=== PATIENT | female | born 1985 ===

== ENCOUNTER 2020-08-08 14:34 | Inpatient (IN) | payer OTHER ==
[2020-08-08] MEDS ORDERED: ePHEDrine SULFATE 50 MG/1 ML INJ IV PRN (15:46)
[2020-08-08] MEDS ORDERED: ONDANSETRON 4 MG/2 ML INJ IV PRN (15:46)
[2020-08-08] MEDS ORDERED: BUTORPHANOL 2 MG/1 ML INJ IV PRN ×2 (15:46)
[2020-08-08] MEDS ORDERED: TERBUTALINE 1 MG/1 ML INJ SUB-Q PRN (15:46)
[2020-08-08] MEDS ORDERED: NalbUPHINE 10 MG/1 ML INJ IV PRN (15:46)
[2020-08-08] MEDS ORDERED: fentaNYL 100 MCG/2 ML INJ IV PRN (15:46)
[2020-08-08] MEDS ORDERED: ACETAMINOPHEN 325 MG TAB PO PRN (15:46)
[2020-08-08] MEDS ORDERED: MINERAL OIL 30 ML ORAL LIQD PO PRN (15:46)
[2020-08-08] MEDS ORDERED: OXYTOCIN 20 UNIT/1000ML DRIP 20 UNITS/1,000 ML BAG IV SCH (16:00)
[2020-08-08 16:22] LABS: Hematocrit 35.4 % (30.3-42.9); Hemoglobin 12.4 gm/dl (10.1-14.3); Mean Corpuscular HGB Conc 35 % (30-34); Mean Corpuscular Volume 96 fl (79-97); Platelet Count 159 K/mm3 (140-440); Red Blood Count 3.69 M/mm3 (3.65-5.03); Red Cell Distribution Width 13.7 % (13.2-15.2)
[2020-08-08] MEDS ORDERED: LIDOCAINE (2%) 20 MG/1 ML VIAL 20 ML MDV INFILTRATI ONE (16:46)
[2020-08-08] MEDS ORDERED: AMPICILLIN/NS 2 GM/100 ML 2 GM/100 ML BAG IV ONE (17:00)
[2020-08-08] MEDS ORDERED: AMPICILLIN/NS 1 GM/50 ML 1 GM/50 ML BAG IV SCH (21:00)
--- NOTE | 2020-08-08 21:06 | Ultrasound Report ---
ULTRASOUND OBSTETRIC LIMITED INDICATION / CLINICAL INFORMATION: VINAY. Clinical Gestational Age (GA): 40 weeks 3 days COMPARISON: None available. FINDINGS: HEART RATE (beats per minute): 129 AMNIOTIC FLUID INDEX (cm) = 4.5 (normal = 7-24 cm) PRESENTATION: Cephalic. ADDITIONAL FINDINGS: None. IMPRESSION: 1. Decreased amniotic fluid index of 4.5 cm. Additional findings as above. Signer Name: Jcarlos Tejeda MD Signed: 08/08/2020 9:02 PM Workstation Name: [email or web address]
--- NOTE | 2020-08-08 21:18 | Ultrasound Report ---
LIMITED OBSTETRIC ULTRASOUND WITH BIOPHYSICAL PROFILE HISTORY: Query well-being. COMPARISON: Limited obstetric ultrasound 08/08/2020 TECHNIQUE: Obstetric sonogram performed for biophysical profile assessment. FINDINGS: Gestation: Monochorionic monoamniotic single intrauterine Presentation: Currentlycephalic Amniotic Fluid Index/Deepest Vertical Pocket: 4.5 cm (as seen on accompanying examination) ANATOMY: Detailed anatomic survey was not requested. heart rate is 129 beats per minute. BIOPHYSICAL PROFILE: Movement: 2 Tone: 2 Breathin Amniotic Fluid: 2 Total: 8 out of 8 IMPRESSION Biophysical Profile 06/23. Signer Name: Jcarlos Tejeda MD Signed: 08/08/2020 9:14 PM Workstation Name: [id number]
--- NOTE | 2020-08-08 21:33 | History and Physical Report ---
History of Present Illness Date of examination: 08/08/20 Date of admission: 08/08/20 14:34 History of present illness: Pt is a 34 yo at 40w 3d with essentially an uncomplicated . She was sent in today after a nonreactive NST in the office today. NST was reactive in L&D and BPP was 8/8 but her VINAY was only 4.5. As a result, will keep pt for IOL for oligo. GBS neg. Past History Past Medical History: no pertinent history Social history: no significant social history - Obstetrical History : 3 Para: 2 Number of Living Children: 2 Medications and Allergies Allergies Allergy/AdvReac Type Severity Reaction Status Date / Time No Known Allergies Allergy Unverified 08/08/20 15:44 Active Meds: Active Medications Acetaminophen (Tylenol) 650 mg PO Q4H PRN PRN Reason: Pain, Mild (1-3) Butorphanol Tartrate (Stadol) 1 mg IV Q2H PRN PRN Reason: Pain, Moderate(4-6) LABOR PAIN Butorphanol Tartrate (Stadol) 2 mg IV Q2H PRN PRN Reason: Pain , Severe (7-10) Ephedrine Sulfate (Ephedrine Sulfate) 10 mg IV Q2M PRN PRN Reason: Hypotension Fentanyl (Sublimaze) 100 mcg IV Q2H PRN PRN Reason: Pain,Severe (7-10) LABOR PAIN Lactated Ringer's (Lactated Ringers) 1,000 mls @ 125 mls/hr IV DIRECT BRAYDEN Oxytocin/Sodium Chloride (Pitocin/Ns 20 Unit/1000ml Drip) 20 units in 1,000 mls @ 125 mls/hr IV DIRECT BRAYDEN Ampicillin Sodium (Ampicillin/Ns 1 Gm/50 Ml) 1 gm in 50 mls @ 100 mls/hr IV Q4H BRAYDEN; Protocol Mineral Oil (Mineral Oil) 30 ml PO QHS PRN PRN Reason: Constipation Nalbuphine HCl (Nalbuphine) 10 mg IV Q2H PRN PRN Reason: Pain, Moderate (4-6) Ondansetron HCl (Zofran) 4 mg IV Q8H PRN PRN Reason: Nausea And Vomiting Terbutaline Sulfate (Brethine) 0.25 mg SUB-Q ONCE PRN PRN Reason: Hyperstimulation/Hypertonicity Review of Systems All systems: negative - Vital Signs Vital signs: Vital Signs Pulse BP 79 117/68 08/08/20 15:27 08/08/20 15:27 Temp Pulse Resp BP Pulse Ox 99.1 F 85 18 117/68 99 08/08/20 19:30 08/08/20 21:27 08/08/20 19:30 08/08/20 19:30 08/08/20 21:27 - Obstetrical FHR: category 1 Cervical Dilatation: 1 Cervical Effacement Percentage: 40 (per RN report) station: hi Results Result Diagrams: 08/08/20 15:45 Abnormal lab results 08/08/20 Range/Units 15:45 MCH 34 H (28-32) pg MCHC 35 H (30-34) % All other labs normal. Assessment and Plan - Patient Problems (1) Oligohydramnios Current Visit: Yes Status: Acute Plan to address problem: In light of her VINAY of 4.5 and being post dates, PT kept for IOL. Cervidil ordered. Expectant management. (2) Post-dates Current Visit: Yes Status: Acute
[2020-08-08] MEDS ORDERED: DINOPROSTONE 10 MG VAG SUPP VG ONE (22:15)
[2020-08-09] MEDS: LACTATED RINGERS 1,000 ML IV SCH ×4 (04:53→14:37)
--- NOTE | 2020-08-09 09:39 | Progress Note ---
Assessment and Plan A: IUP@ 40 wks Oligo P:Continue monitoring D/C cervidil Will AROM once epidural is in place Pain med/Epidural prn Anticipate Subjective - Subjective Date of service: 08/09/20 Principal diagnosis: IUP@term Patient reports: movement normal Objective - Vital Signs Vital Signs: Vital Signs - 12hr 08/08/20 08/08/20 08/08/20 21:37 21:42 21:47 Temperature Pulse Rate 84 83 81 Respiratory Rate Blood Pressure O2 Sat by Pulse 100 100 98 Oximetry 08/08/20 08/08/20 08/08/20 21:52 21:57 22:07 Temperature Pulse Rate 84 91 H 85 Respiratory Rate Blood Pressure O2 Sat by Pulse 100 100 98 Oximetry 08/08/20 08/08/20 08/08/20 22:12 22:27 22:32 Temperature Pulse Rate 94 H 88 80 Respiratory Rate Blood Pressure O2 Sat by Pulse 98 97 99 Oximetry 08/08/20 08/08/20 08/08/20 22:37 22:42 23:16 Temperature Pulse Rate 88 82 71 Respiratory Rate Blood Pressure O2 Sat by Pulse 99 98 96 Oximetry 08/08/20 08/08/20 08/08/20 23:21 23:26 23:31 Temperature Pulse Rate 87 70 75 Respiratory Rate Blood Pressure O2 Sat by Pulse 100 100 100 Oximetry 08/08/20 08/08/20 08/08/20 23:36 23:41 23:42 Temperature Pulse Rate 73 87 79 Respiratory Rate Blood Pressure O2 Sat by Pulse 100 82 L 99 Oximetry 08/08/20 08/08/20 08/08/20 23:47 23:52 23:57 Temperature Pulse Rate 72 72 84 Respiratory Rate Blood Pressure O2 Sat by Pulse 98 98 98 Oximetry 08/09/20 08/09/20 08/09/20 00:02 00:07 00:12 Temperature Pulse Rate 83 85 82 Respiratory Rate Blood Pressure O2 Sat by Pulse 98 98 98 Oximetry 08/09/20 08/09/20 08/09/20 00:17 00:22 00:27 Temperature Pulse Rate 78 82 76 Respiratory Rate Blood Pressure O2 Sat by Pulse 99 99 99 Oximetry 08/09/20 08/09/20 08/09/20 00:32 00:37 00:42 Temperature Pulse Rate 74 72 77 Respiratory Rate Blood Pressure O2 Sat by Pulse 99 99 99 Oximetry 08/09/20 08/09/20 08/09/20 00:47 00:52 00:57 Temperature Pulse Rate 71 72 78 Respiratory Rate Blood Pressure O2 Sat by Pulse 99 100 100 Oximetry 08/09/20 08/09/20 08/09/20 01:02 01:07 01:12 Temperature Pulse Rate 80 79 85 Respiratory Rate Blood Pressure O2 Sat by Pulse 99 98 98 Oximetry 08/09/20 08/09/20 08/09/20 01:17 01:22 01:27 Temperature Pulse Rate 76 79 74 Respiratory Rate Blood Pressure O2 Sat by Pulse 98 98 97 Oximetry 08/09/20 08/09/20 08/09/20 01:32 01:37 01:42 Temperature Pulse Rate 78 78 87 Respiratory Rate Blood Pressure O2 Sat by Pulse 97 98 100 Oximetry 08/09/20 08/09/20 08/09/20 01:47 01:52 01:57 Temperature Pulse Rate 70 92 H 73 Respiratory Rate Blood Pressure O2 Sat by Pulse 98 97 98 Oximetry 08/09/20 08/09/20 08/09/20 02:02 02:07 02:12 Temperature Pulse Rate 72 73 72 Respiratory Rate Blood Pressure O2 Sat by Pulse 98 98 98 Oximetry 08/09/20 08/09/20 08/09/20 02:17 02:22 02:27 Temperature Pulse Rate 92 H 87 79 Respiratory Rate Blood Pressure O2 Sat by Pulse 98 99 97 Oximetry 08/09/20 08/09/20 08/09/20 02:32 03:26 03:31 Temperature Pulse Rate 75 73 74 Respiratory Rate Blood Pressure O2 Sat by Pulse 98 98 98 Oximetry 08/09/20 08/09/20 08/09/20 03:36 03:41 03:46 Temperature Pulse Rate 71 79 72 Respiratory Rate Blood Pressure O2 Sat by Pulse 98 98 98 Oximetry 08/09/20 08/09/20 08/09/20 03:51 03:56 04:01 Temperature Pulse Rate 69 69 70 Respiratory Rate Blood Pressure O2 Sat by Pulse 98 98 98 Oximetry 08/09/20 08/09/20 08/09/20 04:06 04:11 04:16 Temperature Pulse Rate 85 72 70 Respiratory Rate Blood Pressure O2 Sat by Pulse 99 99 99 Oximetry 08/09/20 08/09/20 08/09/20 04:21 04:26 04:31 Temperature Pulse Rate 72 79 72 Respiratory Rate Blood Pressure O2 Sat by Pulse 99 98 98 Oximetry 08/09/20 08/09/20 08/09/20 04:36 04:41 04:46 Temperature Pulse Rate 86 72 83 Respiratory Rate Blood Pressure O2 Sat by Pulse 100 97 98 Oximetry 08/09/20 08/09/20 08/09/20 08:40 08:42 08:45 Temperature 98.6 F Pulse Rate 81 77 Respiratory 18 Rate Blood Pressure 112/63 O2 Sat by Pulse 98 97 Oximetry 08/09/20 08/09/20 08/09/20 08:47 08:52 08:57 Temperature Pulse Rate 89 88 76 Respiratory Rate Blood Pressure O2 Sat by Pulse 99 96 97 Oximetry 08/09/20 08/09/20 08/09/20 09:02 09:07 09:12 Temperature Pulse Rate 77 81 89 Respiratory Rate Blood Pressure O2 Sat by Pulse 96 97 97 Oximetry 08/09/20 08/09/20 08/09/20 09:17 09:22 09:24 Temperature Pulse Rate 98 H 74 Respiratory 18 Rate Blood Pressure O2 Sat by Pulse 98 99 Oximetry 08/09/20 08/09/20 08/09/20 09:27 09:32 09:33 Temperature Pulse Rate 66 75 79 Respiratory Rate Blood Pressure O2 Sat by Pulse 98 98 92 Oximetry - Exam Breasts: normal Abdomen: Present: normal appearance, soft, normal bowel sounds, other (GRAVID) Vulva: both: normal Uterus: Present: normal, firm, other (GRAVID) FHR: auscultation normal, category 1 Uterine Contraction Monitor Mode: External Cervical Dilatation: 4 Cervical Effacement Percentage: 60 station: -2 Uterine Contraction Pattern: Irregular Uterine Tone Measurement Phase: Resting Uterine Contraction Intensity: Mild Extremities: normal - Labs Labs: Abnormal Labs 08/08/20 15:45 MCH 34 H MCHC 35 H Laboratory Results - last 24 hr 08/08/20 08/08/20 08/08/20 15:45 15:45 15:45 WBC 10.1 RBC 3.69 Hgb 12.4 Hct 35.4 MCV 96 MCH 34 H MCHC 35 H RDW 13.7 Plt Count 159 Syphilis IgG Antibody Nonreactive Blood Type O POSITIVE Antibody Screen Negative
[2020-08-09] MEDS ORDERED: DEXMEDETOMIDINE 200 MCG/2 ML VIAL IV ONE (11:15)
[2020-08-09] MEDS ORDERED: NALOXONE 2 MG/2 ML INJ IV PRN (11:29)
--- NOTE | 2020-08-09 11:31 | Anesthesia Consultation ---
Anesthesia Consult and Med Hx Date of service: 08/09/20 - Airway Anesthetic Teeth Evaluation: Good ROM Head & Neck: Adequate Mental/Hyoid Distance: Adequate Mallampati Class: Class II Intubation Access Assessment: Good - Pulmonary Exam CTA: Yes - Cardiac Exam Cardiac Exam: RRR - Pre-Operative Health Status ASA Pre-Surgery Classification: ASA2 Proposed Anesthetic Plan: Epidural - Pulmonary Hx Smoking: No Hx Asthma: No Hx Sleep Apnea: No - Cardiovascular System Hx Hypertension: No - Central Nervous System Hx Seizures: No Hx Psychiatric Problems: No - Gastrointestinal Hx Gastroesophageal Reflux Disease: No - Endocrine Hx Renal Disease: No Hx Hypothyroidism: No Hx Hyperthyroidism: No - Hematic Hx Anemia: No Hx Sickle Cell Disease: No - Other Systems Hx Alcohol Use: No
--- NOTE | 2020-08-09 11:35 | Progress Note ---
Labor Epidural - Labor Epidural Start Time: 11:08 Stop Time: 11:14 Performed by:: LISA PABLO (Nela CASTANEDA) Procedure: Patient is requesting a laboring epidural for laboring pain. Patient IDed, H&P reviewed, all questions and concerns were answered, and consent was signed. Timeout was performed at bedside. Patient in sitting position. Sterile prep and drape was performed. 3ml of 1% lidocaine skin wheal at L[3]- L [4]. 18-gau ge Touhy epidural needle was advanced to loss of resistance with saline technique. Negative CSF negative blood. Epidural catheter advanced to [12] centimeters. [-] Aspiration [-] test dose. Sterile dressing applied. Patient tolerated procedure.
[2020-08-09] MEDS ORDERED: fentaNYL-BUPIV 2 MCG/ML-0.125% 200 MCG/100 ML BAG EPIDURAL SCH (12:00)
[2020-08-09] MEDS ORDERED: ONDANSETRON 4 MG/2 ML INJ IV PRN ×2 (12:00→19:15)
[2020-08-09] MEDS ORDERED: diphenhydrAMINE 50 MG/ML VIAL IV PRN (12:00)
[2020-08-09] MEDS ORDERED: LACTATED RINGERS 1,000 ML ONE (12:38)
[2020-08-09] MEDS ORDERED: miSOPROStol 200 MCG TAB PR ONE (18:30)
[2020-08-09] MEDS ORDERED: miSOPROStol 200 MCG TAB ONE (18:31)
[2020-08-09] MEDS ORDERED: MAGNESIUM HYDROXIDE (MOM) ORAL LIQD UDC PO PRN (19:15)
[2020-08-09] MEDS ORDERED: PROMETHAZINE 25 MG RECT SUPP PR PRN (19:15)
[2020-08-09] MEDS ORDERED: PROMETHAZINE 25 MG TAB PO PRN (19:15)
[2020-08-09] MEDS ORDERED: WITCH HAZEL/ GLYCERIN PAD TP PRN (19:15)
[2020-08-09] MEDS ORDERED: LANOLIN/ZINC/DIMETHICONE (LANSINOH) 7 GM TP PRN (19:15)
--- NOTE | 2020-08-09 19:23 | Procedure Note ---
OB Delivery Note - Vaginal Delivery presentation: vertex Delivery position: OA Intrapartum events: other(please specify) (oligo) Delivery induction: cervidil Delivery augmentation: rupture of membranes Delivery monitor: external FHT, external uterine Route of delivery: Delivery placenta: spontaneous Delivery cord: 3 umbilical vessels Episiotomy: none Delivery laceration: 1st degree, vaginal side wall, other (right vag sidewall tear) Delivery repair: vicryl Anesthesia: epidural Delivery comments: Called to for delivery. SVE 10/100%/+2 and pt was pushing. of a live viable male infant in OA position. Spontaneous delivery of head and shoulders. Infant was immediately placed on mom's chest for skin to skin bonding x 90 sec then cord was clamped x2 and FOB was allowed to cut the cord. Infant was then given to awaiting NICU nurse for an initial asses. 9/9. Spontaneous delivery of intact placenta with CVX3. FF@ U1 boggy off and on with a constant trickle of blood noted. FF remained firm and hemostasis was maintained with fundal massage, IV Pitocin, and Cytotec 800mcg NM. Exploration of tears revealed a 1st degree right vag wall laceration which was bleeding and repaired with a 2- 0 Vicryl on a CT1. EBL 450cc. Mom and baby stable. FW 7 lbs 13.8oz. - Infant A at 1 minute: 9 at 5 minutes: 9 (FW 7lbs 13.8oz) Gender: Male
[2020-08-09] MEDS: IBUPROFEN 600 MG TAB PO SCH (22:13)
[2020-08-10] MEDS: IBUPROFEN 600 MG TAB PO SCH ×3 (05:54→18:46)
[2020-08-10] MEDS ORDERED: DIPHtheria,PERTUSSIS(ACELL),TETANUS VACCINE/PF 0.5 ML VIAL IM ONE (06:00)
[2020-08-10] MEDS ORDERED: NON-FORMULARY EACH (Prenatal One Daily Tablet 1 TAB) PO SCH (10:00)
[2020-08-10] MEDS: PRENATAL VIT27-FE FUMARATE-FOLIC ACID VIT TAB PO SCH (10:22)
[2020-08-10 10:48] LABS: Hematocrit 32.5 % (30.3-42.9); Hemoglobin 11.2 gm/dl (10.1-14.3)
--- NOTE | 2020-08-10 11:40 | Progress Note ---
Assessment and Plan - Patient Problems (1) Status post normal vaginal delivery Current Visit: Yes Status: Acute Plan to address problem: Continue routine PP orders Anticipate d/c home in AM F/U at office in 6 wks for routine PP visit Subjective - Subjective Date of service: 08/10/20 Principal diagnosis: S/P ; PPD#1 Interval history: See admission H & P, OB delivery summary and PP progress notes Patient reports: appetite normal, voiding normally, pain well controlled, flatus, ambulating normally : doing well, bottle feeding (and ) Objective - Vital Signs Latest vital signs: Vital Signs Temp Pulse Resp BP BP Pulse Ox 08/10/20 07:40 98.1 F 83 18 96/57 97 08/10/20 06:28 18 08/10/20 05:54 18 08/10/20 04:00 98.8 F 74 18 103/79 08/10/20 00:00 98.6 F 66 18 114/78 08/09/20 23:13 18 08/09/20 22:13 18 08/09/20 20:57 98.6 F 18 118/65 08/09/20 19:48 75 113/59 08/09/20 19:33 64 89 08/09/20 19:32 88 0 L 08/09/20 19:23 83 89 08/09/20 19:22 89 100 08/09/20 19:18 88 106/57 08/09/20 19:17 94 H 100 08/09/20 19:12 86 91 08/09/20 19:07 76 100 08/09/20 19:04 88 89 08/09/20 19:03 82 99/61 08/09/20 19:02 83 98 08/09/20 18:57 100 H 100 08/09/20 18:52 86 99 08/09/20 18:51 78 78 L 08/09/20 18:48 74 94/52 08/09/20 18:46 81 100 08/09/20 18:41 73 100 08/09/20 18:36 83 100 08/09/20 18:33 80 97/56 08/09/20 18:31 79 99 08/09/20 18:26 99 H 98 08/09/20 18:21 117 H 88 08/09/20 18:20 74 72 L 09/24/20 18:18 75 105/54 2420 18:16 88 100 20 18:14 70 90 20 18:11 66 100 20 18:06 83 100 20 18:05 83 92/54 20 18:01 82 100 20 17:56 68 100 20 17:51 87 92/54 100 20 17:48 86 88/52 20 17:46 66 100 20 17:41 72 100 20 17:36 75 100 20 17:33 84 98/59 20 17:31 84 100 20 17:26 69 100 20 17:21 70 99 20 17:18 67 102/64 20 17:16 79 99 08/09/20 17:11 87 99 08/09/20 17:06 80 100 08/09/20 17:02 79 101/58 20 17:01 82 100 20 16:59 67 104/58 20 16:56 70 103/57 100 20 16:53 71 102/56 20 16:51 70 100 20 16:50 69 105/56 20 16:47 64 97/56 20 16:46 67 100 20 16:44 68 106/59 20 16:41 69 99/55 100 20 16:38 70 99/56 20 16:36 65 100 20 16:35 67 100/57 08/09/20 16:32 67 99/57 24/20 16:31 63 100 20 16:29 65 101/58 08/09/20 16:26 75 102/57 100 20 16:23 68 102/57 24/20 16:21 69 99 20 16:20 74 94/56 24/20 16:17 66 101/57 24/20 16:16 71 100 20 16:14 61 95/53 09/24/20 16:11 62 97/54 100 09/24/20 16:08 75 94/53 09/24/20 16:06 63 100 09/24/20 16:05 67 99/56 09/24/20 16:02 71 98/57 09/24/20 16:01 68 100 09/24/20 15:59 65 97/57 09/24/20 15:56 67 97/55 100 09/24/20 15:53 66 98/55 09/24/20 15:51 61 100 09/24/20 15:50 60 96/53 09/24/20 15:47 62 91/50 09/24/20 15:46 64 100 09/24/20 15:44 68 94/55 09/24/20 15:42 88 94/53 09/24/20 15:41 80 100 09/24/20 15:38 62 94/52 09/24/20 15:36 61 100 09/24/20 15:35 61 101/56 09/24/20 15:32 62 92/55 /24/20 15:31 65 100 09/24/20 15:29 68 93/54 09/24/20 15:26 68 98/57 99 09/24/20 15:23 62 103/60 09/24/20 15:21 66 100 09/24/20 15:20 61 102/56 09/24/20 15:17 67 100/57 09/24/20 15:16 66 100 09/24/20 15:14 66 91/50 09/24/20 15:11 64 98/53 100 09/24/20 15:08 68 95/51 09/24/20 15:06 62 99 09/24/20 15:05 64 99/54 09/24/20 15:02 65 92/53 09/24/20 15:01 63 100 09/24/20 15:00 64 86/51 09/24/20 14:56 62 102/59 99 09/24/20 14:53 60 97/56 09/24/20 14:51 63 99 09/24/20 14:50 63 94/50 09/24/20 14:47 60 95/54 09/24/20 14:46 63 99 09/24/20 14:44 67 91/53 09/24/20 14:41 65 98/57 100 09/24/20 14:38 62 95/50 20 14:36 72 100 08/09/20 14:35 68 93/53 08/09/20 14:32 69 90/54 08/09/20 14:31 66 99 08/09/20 14:30 61 99/55 08/09/20 14:27 98.1 F 64 83/47 08/09/20 14:26 67 100 08/09/20 14:24 60 100/55 08/09/20 14:21 75 100 08/09/20 14:20 72 84/51 08/09/20 14:19 65 88/49 08/09/20 14:18 94 H 86/47 08/09/20 14:16 76 100 08/09/20 14:14 73 91/55 08/09/20 14:11 63 97/55 100 08/09/20 14:08 63 99/56 08/09/20 14:06 64 99 08/09/20 14:05 63 99/57 08/09/20 14:02 64 104/58 08/09/20 14:01 76 100 08/09/20 13:59 67 93/53 08/09/20 13:56 72 89/51 100 08/09/20 13:53 80 86/50 08/09/20 13:51 68 100 08/09/20 13:50 71 89/52 08/09/20 13:47 84 86/51 08/09/20 13:46 64 100 08/09/20 13:44 82 92/56 08/09/20 13:41 70 100/59 100 08/09/20 13:38 66 107/59 08/09/20 13:36 67 108/55 100 08/09/20 13:33 74 89/50 20 13:31 65 100 08/09/20 13:29 61 103/58 20 13:26 67 100/57 100 20 13:23 76 92/52 20 13:21 63 100 20 13:20 68 100/59 20 13:17 63 108/62 20 13:16 64 99 08/09/20 13:14 60 109/59 09/24/20 13:12 72 104/54 09/24/20 13:11 68 100 24/20 13:08 63 107/61 24/20 13:06 66 100 20 13:05 61 104/59 08/09/20 13:02 67 98/57 20 13:01 75 100 20 13:00 111 H 86/55 24/20 12:57 94 H 157/74 20 12:56 80 99 20 12:53 74 98/57 20 12:51 61 108/61 100 08/09/20 12:48 60 132/71 24/20 12:46 63 100 08/09/20 12:44 82 90/59 2420 12:41 83 84/53 99 20 12:38 79 82/53 24/20 12:36 88 99 20 12:35 79 88/51 24/20 12:32 79 82/50 2420 12:31 64 100 20 12:30 100 H 93/53 20 12:27 102 H 101/56 24/20 12:26 68 99 20 12:24 73 106/57 20 12:21 72 99 20 12:20 95/57 24/20 12:17 67 98/57 24/20 12:16 92 H 99 20 12:14 73 104/62 24/20 12:11 72 99/58 100 20 12:08 80 94/58 24/20 12:06 82 100 20 12:05 75 94/59 24/20 12:02 65 95/57 24/20 12:01 71 99 24/20 11:59 64 100/60 24/20 11:57 78 97/60 24/20 11:56 69 100 24/20 11:53 77 101/62 /24/20 11:51 78 100 /24/20 11:50 73 101/63 24/20 11:47 67 102/61 24/20 11:46 75 98 08/09/20 11:44 67 100/62 08/09/20 11:41 63 97/60 98 08/09/20 11:38 75 95/56 Intake and Output 08/09/20 08/10/20 08/10/20 23:59 07:59 15:59 Intake Total 240 320 Output Total 350 300 Balance -110 20 Intake: Oral 200 Intake, Free Water 240 120 Output: Urine 350 300 Indwelling Catheter 150 Void 200 300 Other: Total, Intake Amount 200 Total, Output Amount 200 300 # Voids Void 1 1 Estimated Blood Loss 450 - Exam Breasts: Present: normal Cardiovascular: Present: Regular rate Lungs: Present: Normal air movement Abdomen: Present: soft Uterus: Present: firm, fundal height below umbilicus (U-2) Extremities: Present: normal Deep Tendon Reflex Grade: Normal +2 Incision: Present: other (1st degree vaginal laceration, healing as expected)
--- NOTE | 2020-08-10 11:43 | Discharge Summary ---
Providers - Providers Date of Admission: 08/08/20 14:34 Date of discharge: 08/11/20 (0900) Attending physician: MARIFER OAKLEY Primary care physician: MARIFER OAKLEY Hospitalization Reason for admission: induction of labor Delivery: Episiotomy: none Laceration: 1st degree (healing as expected) Other procedures: none complications: none Discharge diagnosis: IUP at term delivered [place] baby: male Hospital course: See admission H & P, OB delivery summary and PP progress notes Condition at discharge: Stable Disposition: DC-01 TO HOME OR SELFCARE - Discharge Diagnoses (1) Status post normal vaginal delivery Status: Acute Plan - Provider Discharge Summary Activity: routine, no sex for 6 weeks, no heavy lifting 4 weeks, no strenuous exercise Diet: other (Iron rich diet) Instructions: routine Additional instructions: [] Smoking cessation referral if applicable(refer to patient education folder for contact #) [] Refer to [facility]'s [facility] Booklet Call your doctor immediately for: * Fever > 100.5 * Heavy vaginal bleeding ( >1 pad per hour) * Severe persistent headache * Shortness of breath * Reddened, hot, painful area to leg or breast * Drainage or odor from incision. * Keep vaginal laceration site clean and dry at all times and follow doctor's instructions regarding bathing/showering - Follow up plan Follow up: MARIFER OAKLEY MD [Primary Care Provider] - 6 Weeks
--- NOTE | 2020-08-10 18:44 | Post Anesthesia Evaluation ---
- Post Anesthesia Evaluation Patient Participated: Yes Airway Patent: Yes Stable Respiratory Function: Yes Nausea/Vomiting: No Temp > 96.8F: Yes Pain Manageable: Yes Adequeate Hydration: Yes Anesthesia Complications: No Block Receding Appropriately: Yes Patient on Ventilator: No
[2020-08-11] MEDS: IBUPROFEN 600 MG TAB PO SCH ×3 (00:12→15:34)
[2020-08-11 14:58] VITALS: BP 117/70
[2020-08-11] MEDS: PRENATAL VIT27-FE FUMARATE-FOLIC ACID VIT TAB PO SCH (15:34)
== END 2020-08-11 14:50 | disposition home or self-care (01) | DRG 806 ==
LOC: LD 14:34 → OB 08-09 21:08
PROVIDERS: ADMIT Obstetrics & Gynecology; ATTEND Obstetrics & Gynecology
PROC: 3E0P7VZ Introduction of Hormone into Female Reproductive, Via Natural or Artificial Opening (ICD-10-PCS; principal; 2020-08-09)
PROC: 10E0XZZ Delivery of Products of Conception, External Approach (ICD-10-PCS; 2020-08-09)
PROC: 10907ZC Drainage of Amniotic Fluid, Therapeutic from Products of Conception, Via Natural or Artificial Opening (ICD-10-PCS; 2020-08-09)
PROC: 3E0R3BZ Introduction of Anesthetic Agent into Spinal Canal, Percutaneous Approach (ICD-10-PCS; 2020-08-09)
PROC: 00HU33Z Insertion of Infusion Device into Spinal Canal, Percutaneous Approach (ICD-10-PCS; 2020-08-09)
PROC: 3E0234Z Introduction of Serum, Toxoid and Vaccine into Muscle, Percutaneous Approach (ICD-10-PCS; 2020-08-10)
DX: O48.0 Post-term pregnancy (principal); O41.03X0 Oligohydramnios, third trimester, not applicable or unspecified; Z37.0 Single live birth; O70.0 First degree perineal laceration during delivery; Z3A.40 40 weeks gestation of pregnancy; Z20.828 Contact with and (suspected) exposure to other viral communicable diseases; Z23 Encounter for immunization
CPT/HCPCS: 36415; 59200; 76815; 76819; 85014; 85018; 85027; 86592; 86850; 86900; 86901; 90471; 90715; G0378; J0595; J2590; J3490; J7120; U0003-CS